=== PATIENT | female | born 1935 | race Caucasian/White ===

== ENCOUNTER 2017-02-13 07:55 | Inpatient (IN) | payer MEDICARE, BC ==
--- NOTE | 2017-01-08 15:12 | NUR ---
FACE TO FACE INTERVIEW WITH PATIENT. PMH, MEDS, ALLERGIES REVIEWED DOCUMENTED, INSTRUCTIONS GIVEN DOCUMENTED AND HANDOUTS IN THE FORM OF 'MEDS TO DC PRIOR TO SURGERY', CONSENT FOR JOINT REPLACEMENT, LETTER FROM DR EDDY, INFORMATION FOR SHOWERING 4 DAYS BEFORE SURGERY, AND SURGERY/ANESTHESIA PAMPHLET GIVEN TO PATIENT. Kevin DUGAN RN CONTACT INFORMATION INCLUDED IF PATIENT HAS QUESTIONS.
[2017-02-13] VITALS (28 sets, daily range): BP systolic 118–154; BP diastolic 56–70; PULSE 71–108; RESP 14–18; TEMP 97.2–99.3; O2SAT 90–100; Ht 157.5 cm; Wt 76.5 kg
[~2017-02-13] VITALS: Ht 157.5 cm; Wt 76.5 kg
[~2017-02-13 07:55] MED LIST: ACETAMINOPHEN 500 MG TABLET PO ONE; ALBU8.5H INH; ASCO500T9 PO; CALC-52 PO; CEFAZOLIN 2 GM VIAL IV ONE; DEXAMETHASONE 4mg/ml - 1ml INJECTION IV ONE; FAMOTIDINE 20mg IVPB 50 ML IV ONE; FLAX1000 PO; FLUT1DIS30 IH; FURO-33 PO; GABA-215 PO; GABA-305 PO; LEVO100T85 PO; LIDOCAINE 1% (10mg/ml) 2ml SDV SQ ONE; LISI10TA7 PO; LR 1,000 ML IV SCH; METOCLOPRAMIDE 10mg/2ml INJECTION IV ONE; MULT-933 PO; NOZIN NASAL SWAB NS ONE; ONDANSETRON 4mg/2ml INJECTION IV ONE; SIMV20TA89 PO; SIMV40TA82 PO; TRANEXAMIC ACID 1,000 MG in NORMAL SALINE 100 ML IV ONE; UBID100C10 PO
--- OUTSIDE RECORDS SUMMARY | 2017-02-13 08:00 | XMS REPORT | Continuity of Care Document ---
Author Author [facility] Organization [facility] Address Unknown Phone Unavailable Support Name Relationship Address Phone RAN LEWIS MD Caregiver [address] [place] [address] Unavailable RAN LEWIS MD Caregiver [address] [place] [address] Unavailable JORDAN CARVALHO Caregiver [address] [place] [address] Unavailable JUNIOR MUNGUIA Next Of Kin [address] [facility] [address] [place] [address] Insurance Providers Guarantor Sienna Munguia Address [address] [facility] [address] [place] [address] Email DENIED 16 Payer Rust Policy Number [id number] Subscriber's Name Sienan Munguia Relationship 18 Self Group Number [id number] Payer Medicare Policy Number [id number] Subscriber's Name Sienna Munguia Relationship 18 Self Advance Directives Directive Response Recorded Date/Time Ordered Resuscitation Status Full Code 11/24/16 4:07pm Resuscitation Documents on File No 11/28/16 9:02am DPOA for Healthcare Only No 11/28/16 9:02am Living Will No 11/28/16 9:02am Problems Active Problems Medical Problem Onset Date Status Asthma Unknown Degenerative arthritis of hip Unknown Chronic Hyperlipemia Unknown Hypertension Unknown Hypothyroidism Unknown Obesity (BMI 30-39.9) Unknown Medications Current Home Medications Medication Dose Units Route Directions Days Qty Instructions Start Date Albuterol Sulfate (Proair Hfa 90 Mcg/Actuation) 8.5 Gm Hfa.aer.ad 2 Puff Inhalation Every 4 Hours as needed for Shortness Of Air/Wheezing Ascorbic Acid (Vitamin C) 500 Mg Tablet 1 Tab Oral Twice A Day Calcium Carbonate (Calcium) 500 Mg Tablet 1 Tab Oral Twice A Day 11/13/16 Enoxaparin Sodium (Lovenox) 40 Mg/0.4 Ml Inj 40 Mg Sub-Q Every 24 Hours 5 11/29/16 Flaxseed Oil 1,000 Mg Capsule 1 Cap Oral Daily 11/13/16 Furosemide 40 Mg Tablet 40 Mg Oral Daily 08/11/13 Gabapentin 300 Mg Capsule 300 Mg Oral Three Times A Day 08/11/13 Gabapentin 600 Mg Tablet 1 Tab Oral Bedtime 11/13/16 Hydrocodone/Acetaminophen ([place] 5-325 Tablet) 5-325 Tablet 1-2 Tab Oral Every 4 Hours Prn as needed for Pain 60 Tablet 11/30/16 Ibuprofen 200 Mg Capsule 4 Cap Oral Every 8 Hours Prn as needed for Pain 11/13/16 Levothyroxine Sodium 100 Mcg Tablet 100 Mcg Oral Daily 08/11/13 Lisinopril 10 Mg Tablet 10 Mg Oral Daily for Hypertension Multivitamin (Multi-Day Vitamins) 1 Each Tablet 1 Tab Oral Daily 11/13/16 Polyethylene Glycol 3350 (Healthylax) 17 Gm Powd.pack 17 G Oral Daily 30 Packet 11/29/16 Salmeterol Xinafoate/Fluticasone (Advair 100-50 Diskus) 1 Each Disk.w.dev 1 Puff Inhalation Twice A Day 08/11/13 Simvastatin 20 Mg Tablet 20 Mg Oral Bedtime 08/11/13 Simvastatin 40 Mg Tablet 40 Mg Oral Bedtime 08/11/13 Ubidecarenone (Coq-10) 100 Mg Capsule 1 Cap Oral Daily 11/13/16 Warfarin Sodium 2.5 Mg Tablet 2.5 Mg Oral Give At Noon 30 Tablet Take 1 tablet, by mouth, 1 time a day (at NOON). 11/29/16 Social History Social History Problem Response Recorded Date/Time Onset Date Status Reason for Hospitalization Right Hip Replacement 11/30/2016 7:56am Not Applicable Not Applicable Chewing Tobacco Status No 08/12/2013 5:50am Not Applicable Not Applicable Hx Substance Use No 11/13/2016 2:29pm Not Applicable Not Applicable Hx Alcohol Use No 11/13/2016 2:29pm Not Applicable Not Applicable Has the pt used tobacco in the last 12 months No 11/28/2016 9:00am Not Applicable Not Applicable Query Response Start Date Stop Date Smoking Status Former smoker Hospital Discharge Instructions Instructions: Care Instructions: Reason for Hospitalization: Right Hip Replacement I was in the hospital because (patient own words): REPLACE RIGHT HIP Discharge Diet: Resume normal diet as tolerated Discharge Activity: Continue the exercises you were given in the hospital three times a day. Your therapist will provide you with a home therapy program prior to your hospital discharge. As you feel stronger, increase the number of repetitions you do in each session. Please check with us before you swim, use a whirlpool, drive or ride a bicycle. Follow Up Appointments: Follow up with Dr. Lewis on 12-20-16 @ 11:30AM Pending Lab / Results: No Pending Lab Patient Instructions: Driving may be resumed once you are no longer taking narcotic medications and feel you can safely operate the vehicle. You may wish to practice in an empty parking lot at first. Keep in mind that your reaction time will be delayed for up to 6 weeks after surgery. Contact your surgeon for antibiotics to take before having dental work. Wound/Incision Care: In most cases, a Mepilex dressing will be placed at the time of surgery. This dressing will not need to be covered while showering. Leave dressing in place until your follow-up appointment as long as it remains clean, dry and stuck down well around the edges. Call your Doctor if you encounter a problem with your dressing. Please avoid submerging your incision until it is completely healed, once the Mepilex dressing is removed. This includes bathtubs, swimming pools, and hot tubs. DO NOT USE ALCOHOL, PEROXIDE, OR OINTMENTS of any kind on your incision. Pain Scale Utilized to Educate Patient: 0-10 Pain Scale Pain Management/Treatment: Ice packs may be used, and will also help with the pain. You will be given a prescription for pain. Expected Signs/Symptoms: Some swelling around the incision, as well as in your feet and legs is normal. To help with this, elevate your feet on a footstool when sitting in a chair, and do the ankle pumps and circles whenever you are sitting still. Muscle action helps to move collected fluid out of the tissues and improve circulation. Ice packs may be used, and will also help with the pain. Report any persistent swelling, calf tenderness, increase in pain, or pain in the calf with warmth, or redness to your doctor. Notify Physician If: Report any complications to my office immmediately. This includes excessive bleeding, wound breakdown, redness around the wound, uncontrolled pain, or fever over 101 on 3 different measurements. Eat a balanced diet and get plenty of rest. During Business Hours:: If you have any questions or concerns, please call during regular office hours ([phone]). After Business Hours:: If you have any problems or need to reach a physician after hours or on the weekend please call the hospital's main number [phone] to have your physician paged. Condition at time of discharge: Good Plan of Care Discharge Date 11/30/16 1:24pm Disposition 03 TO [facility] NOT [facility] ([facility]) Instructions/Education Provided [facility] Postop Instructions [facility] General Instructions Prescriptions See Medication Section Additional Instructions/Education FOLLOW UP WITH DR LEWIS 12-20-16 @ 11:30AM Care Plan and Goals See Discharge Instructions Section Functional Status Query Response Date Recorded Mobility Status Ambulatory w/assist November 30, 2016 7:56am Assistive Devices Front Wheeled Walker November 30, 2016 7:56am Activity Limitations Weakness Pain November 30, 2016 7:56am Feeding Ability Independent November 30, 2016 7:56am Toileting Ability Assist November 30, 2016 7:56am Grooming Ability Assist November 30, 2016 7:56am Dressing Ability Assist November 30, 2016 7:56am Driving Ability Dependent November 30, 2016 7:56am Housework Ability Assist November 30, 2016 7:56am Meal Preparation Ability Assist November 30, 2016 7:56am Stair Climbing Ability Assist November 30, 2016 7:56am Ability to complete ADL's impeded by No change November 30, 2016 7:56am Cognitive/Perceptual Impairments Impaired vision November 30, 2016 7:56am Visual Assistive Devices Glasses With patient November 28, 2016 1:10pm Allergies, Adverse Reactions, Alerts Allergen Type Severity Reaction Status Last Updated No Known Drug Allergies Allergy Unknown Active 11/28/16 Immunizations Immunization Event Date Type Not Given Reason Dose Number Lot Number Media Sales Consultant VIS Given Pneumococcal conjugate PCV 13 11/30/16 Administered 1 [id number] Pfizer Query Response on File Recorded Date/Time Hx Influenza Vaccination Y 11-10-16 PER H&P 11/28/16 9:00am Hx Pneumococcal Vaccination Y AGE 67 11/13/16 2:29pm Hx Influenza Vaccination Y 11-10-16 PER H&P 11/28/16 9:00am Influenza Vaccine Hx 07/2016 02/09/17 11:57am Vital Signs Acute Vital Signs Vital Response Date/Time Temperature (Fahrenheit) 98.3 deg F (96.8 - 99.1) 11/30/2016 7:45am Temperature (Calculated Celsius) 36.07764 degrees C (36.0 - 37.3) 11/30/2016 7:45am Temperature Source Oral 11/30/2016 7:45am Pulse Rate (adult) 70 bpm (60 - 100) 11/30/2016 8:17am Respiratory Rate 18 breaths/min (10 - 20) 11/30/2016 8:17am O2 Sat by Pulse Oximetry 93 % (90 - 100) 11/30/2016 7:45am Oxygen Delivery Method Room Air 11/30/2016 7:45am Oxygen Delivery Method Nasal Cannula 11/28/2016 3:56pm Oxygen Flow Rate 2.00 L/min 11/30/2016 3:54am Blood Pressure 139/66 mm Hg 11/30/2016 7:45am Blood Pressure Source Automatic Cuff 11/30/2016 7:45am Height (Feet) 5 feet 11/29/2016 7:50am Height (Inches) 2.00 inches 11/29/2016 7:50am Weight (Kilograms) 72.500 kg 11/28/2016 8:31am Body Mass Index (BMI) 29.2 11/28/2016 8:31am Results Laboratory Results Test Name Result Units Flags Reference Collection Date/Time Result Date/ Time Comments White Blood Count 8.8 T/MM3 4.5-11.0 11/30/2016 4:10am 11/30/2016 5: 19am Red Blood Count 3.75 M/MM3 L 4.00-5.20 11/30/2016 4:10am 11/30/2016 5: 19am Hemoglobin 11.3 GM/DL L 12-16 11/30/2016 4:10am 11/30/2016 5:19am Hematocrit 35.9 % L 36-46 11/30/2016 4:10am 11/30/2016 5:19am Mean Corpuscular Volume 95.7 UM3 80-100 11/30/2016 4:10am 11/30/2016 5: 19am Mean Corpuscular Hemoglobin 30.1 UUG 26-34 11/30/2016 4:10am 2016 5:19am Mean Corpuscular Hemoglobin Concent 31.5 GM/DL 31-37 11/30/2016 4:11/30/2016 5:19am RDW Standard Deviation 43.2 FL 36.9-50.2 11/30/2016 4:11/30/2016 5 :19am Platelet Count 238 T/MM3 130-400 11/30/2016 4:11/30/2016 5:19am Mean Platelet Volume 11.4 UM3 9.4-12.4 11/30/2016 4:11/30/2016 5: 19am Prothromb Time International Ratio 1.55 H 0.76-1.04 11/30/2016 4:11/30/2016 5:19am THERAPUTIC RANGE=2.00-3.00 FOR ANTI-THROMBOSIS THERAPUTIC RANGE=2.50-3.50 FOR IMPLANTED VALVE Icterus Index < 2 0-7 11/30/2016 4:11/30/2016 5:30am Chemistry Specimen Hemolysis < 15 0-25 11/30/2016 4:11/30/2016 5 :30am 0-25: Specimen Exhibited No Hemolysis. Turbidity < 20 0-20 11/30/2016 4:11/30/2016 5:30am Sodium Level 139 MEQ/L 134-144 11/30/2016 4:11/30/2016 5:30am Potassium Level 4.3 MEQ/L 3.6-5 11/30/2016 4:11/30/2016 5:30am Chloride Level 107 MEQ/L 98-107 11/30/2016 4:11/30/2016 5:30am Carbon Dioxide Level 29 MEQ/L 22-30 11/30/2016 4:11/30/2016 5: 30am Anion Gap 3 MEQ/L L 5-15 11/30/2016 4:11/30/2016 5:30am Blood Urea Nitrogen 23.0 MG/DL H 7-17 11/30/2016 4:11/30/2016 5: 30am Creatinine 0.9 MG/DL 0.7-1.2 11/30/2016 4:11/30/2016 5:30am BUN/Creatinine Ratio 26 RATIO 6-26 11/30/2016 4:10a11/30/2016 5:30am Glomerular Filtration Rate Calc 60 11/30/2016 4:10a11/30/2016 5: 30am Glucose Level 87 MG/DL 65-110 11/30/2016 4:10a11/30/2016 5:30am Calculated Osmolality 271 MOSM/KG 261-280 11/30/2016 4:10a11/30/2016 5:30am Calcium Level 9.0 MG/DL 8.4-10.2 11/30/2016 4:10a11/30/2016 5:30am Name: SIENNA MUNGUIA Unit #: [id number] : 1935 Sex: F Admit Date: 11/28/16 Loc / Svc: SRG Discharge Date: DIAGNOSTIC IMAGING REPORT Report #: [id number] [place], [place] Indication: ITS.REASON: POSTOP right hip replacement PROCEDURE: PELVIS W/1 VIEW RT HIP: Encounter: Initial Comparison: None Findings: Postoperative changes of right total hip replacement are seen. There is expected postoperative subcutaneous gas. No evidence of hardware failure or acute fracture. No retained radiopaque surgical instruments or sponges seen. Severe osteoarthritis in the contralateral left hip. Impression: New right total hip prosthesis without evidence of immediate complication. . Procedures Procedure Status Date Provider(s) Total replacement of right hip joint Completed 11/28/16 RAN LEWIS MD Encounters Encounter Location Arrival/Admit Date Discharge/Depart Date Attending Provider Discharged Inpatient [facility] 11/28/16 8:13am 11/30/16 1:24pm RAN LEWIS MD
--- OUTSIDE RECORDS SUMMARY | 2017-02-13 08:00 | XMS REPORT | Continuity of Care Document ---
Demographics Preferred Language Unknown Marital Status Unknown Confucianist Affiliation Unknown Race Unknown Ethnic Group Unknown Author Author [facility] Organization [facility] Address Unknown Phone Unavailable Allergies Medications Problems Procedures Results Encounters ACCT No. Visit Date/Time Discharge Status Pt. Type Provider Facility Loc./Unit Complaint [id number] 09/20/2016 12:41:00 [facility] Unknown [id number] 11/12/2015 12:49:00 ACT Unknown [id number] 06/26/2014 12:58:00 ACT Unknown
[2017-02-13 08:35] LABS: ANION GAP 14 MEQ/L (5-15); BUN/CREATININE RATIO 28 RATIO (6-26); CALCIUM 9.5 MG/DL (8.4-10.2); CHLORIDE 103 MEQ/L (98-107); CO2 - CARBON DIOXIDE 29 MEQ/L (22-30); GLOMERULAR FILTRATION RATE 53; GLUCOSE 109 MG/DL (65-110); POTASSIUM 3.8 MEQ/L (3.6-5); SODIUM 146 MEQ/L (134-144)
--- NOTE | 2017-02-13 10:00 | ANESPREOP ---
Anesthesia Record Date and Time DATE: 02/13/17 TIME: 09:58 Proposed Surgical Procedure RT TKA (CHANGED FROM LT MICHAELLE) NPO since: 02/12/17 Allergies: Coded Allergies: No Known Drug Allergies (Verified Allergy, Unknown, 02/13/17) Ht/Wt/BMI Height: 5 ' 2.00 " Weight: 71.500 kg BMI: 28.8 kg/m2 Vital Signs Date Time Temp Pulse Resp B/P Pulse Ox O2 Delivery O2 Flow Rate FiO2 02/13/17 08:09 97.7 71 14 154/70 90 Room Air Medications Inpatient Medications Current Medications Medications (Trade) Dose Ordered Sig/Toni Start Time Stop Time Status Last Admin Dose Admin Lactated Ringer's (Lactated Ringers) 1,000 ml @ 50 mls/hr Q20H 02/13/17 07:00 02/13/17 08:47 50 MLS/HR Albuterol Sulfate (Proair HFA 90 mcg/actuation) 8.5 Gm Hfa.aer.ad, 2 PUFF INH Q4H PRN for SHORTNESS OF AIR/WHEEZING, (Reported) Last Taken: on 02/06/17 Ascorbic Acid (Vitamin C) 500 Mg Tablet, 1 TAB PO BID, (Reported) Last Taken: on 02/12/17 1700 Calcium Carbonate (Calcium) 500 Mg Tablet, 1 TAB PO BID, (Reported) Last Taken: on 02/12/17 1700 Flaxseed Oil (Flaxseed Oil) 1,000 Mg Capsule, 1 CAP PO DAILY, (Reported) Last Taken: on 02/12/17 1100 Fluticasone/Salmeterol (Advair 100-50 Diskus) 1 Each Disk.w.dev, 1 PUFF IH BID, (Reported) Last Taken: on 02/12/17 0600 Furosemide (Furosemide) 40 Mg Tablet, 40 MG PO DAILY, (Reported) Last Taken: on 02/12/17 0700 Gabapentin (Gabapentin) 300 Mg Capsule, 300 MG PO TID, (Reported) Last Taken: on 02/12/17 1700 Gabapentin (Gabapentin) 600 Mg Tablet, 1 TAB PO HS, (Reported) Last Taken: on 02/12/17 1900 Levothyroxine Sodium (Levothyroxine Sodium) 100 Mcg Tablet, 100 MCG PO DAILY, (Reported) Last Taken: on 02/12/17 0600 Lisinopril (Lisinopril) 10 Mg Tablet, 10 MG PO DAILY, (Reported) Last Taken: on 02/12/17 0700 Multivitamin (Multi-Day Vitamins) 1 Each Tablet , 1 TAB PO DAILY, (Reported) Last Taken: on 02/12/17 1100 Simvastatin (Simvastatin) 20 Mg Tablet, 20 MG PO HS, (Reported) Last Taken: on 02/12/17 1900 Simvastatin (Simvastatin) 40 Mg Tablet, 40 MG PO HS, (Reported) Last Taken: on 02/12/171899 Ubidecarenone (Coq-10) 100 Mg Capsule, 1 CAP PO DAILY, (Reported) Last Taken: on 02/05/17 Currently on Beta Alli: No Medical/Surgical History Anesthesia PMH: Reports: *Hypertension, Arthritis (OA; RT KNEE, LT HIP), Asthma (ON INHALER), Cancer (COLON-COLON RESECTION), Hyperlipidemia, Pneumonia ( last time 2007), Thyroid Disease (HYPO- ON MEDS) Smoking Status: Former smoker # of Packs per Day: 1 # of Years: 49 Use Chewing Tobacco?: No Second Hand Exposure: Yes Substance Use Type: does not use Alcohol Intake: other Last Drink: unknown HX of Last Menstrual Period: HYST Past Surgical History Orthopedic Surgeries: Yes - RT KNEE SCOPE; RT THR IN NOV 2016 Abdominal Surgeries: Yes - COLON RESECTION 1993 Genitourinary Surgeries: No Cardiac Surgeries: Endocrine Surgeries: Reproductive Surgeries: Yes - HYST 1980; BSO; FIBROID FROM RT BREAST Neurological Surgeries: Yes - BACK SURGERY FOR STENOSIS Ear Surgeries: No Nose Surgeries: No Throat Surgeries: No Other Surgeries: Yes - COLONOSCOPIES Anesthesia Adverse Reactions: FOUND none Family Hx of Anesthesia Advers: none Pertinent Findings Laboratory Tests 02/13/17 08:19 EKG Rhythm: Sinus Rhythm Physical Exam Respiratory: Bilat breath sounds equal Cardiovascular: FOUND Regular rate, rhythm Airway Assessment Mallampati Score: I TMD: 2 Fingerbreadths Neck Extension: Good Teeth: Upper Dentures ASA: 3 Plan Anesthesia Plan: GETA Discussion Discussed risks/options/alternatives of anesthesia and questions answered. Patient consents. Nursing pain assessment noted. Attestation Statement Prior to the delivery of any anesthetic medication, I examined the patient, developed the plan, obtained the patient's consent and discussed the risk and benefits of the procedure with the patient/guardian. HARISH CHÁVEZ Feb 13, 2017 10:00
[2017-02-13] MEDS ORDERED: FENTANYL 250mcg/5ml INJECTION ONE (10:06)
[2017-02-13] MEDS ORDERED: PROPOFOL 200mg 20 ML IV ONE ×2 (10:07→13:42)
[2017-02-13] MEDS ORDERED: LIDOCAINE (2%) 100 MG/5 ML PF SYRINGE IV ONE (10:07)
[2017-02-13] MEDS ORDERED: KETAMINE 500mg/10ml INJECTION ONE (10:08)
[2017-02-13] MEDS ORDERED: PROPOFOL 200mg 200 MG, ESMOLOL 50 MG, KETAMINE 50 MG, LIDOCAINE 2% 100 MG, MAGNESIUM SU... IV ONE ×7 (10:15)
[2017-02-13] MEDS ORDERED: SALINE FLUSH 10ml SYRINGE ONE (10:27)
[2017-02-13] MEDS ORDERED: PHENYLEPHRINE 10mg/ml INJECTION ONE (10:27)
[2017-02-13] MEDS ORDERED: HYDROMORPHONE 2mg/ml INJECTION ONE (10:51)
[2017-02-13] MEDS ORDERED: ROPIVACAINE 0.5% (5mg/ml) 30ml INJ ONE (11:35)
--- NOTE | 2017-02-13 11:50 | PDOPERATE ---
Operative Report Date of Operation 02/13/17 Side: Right Preoperative Diagnosis: knee primary DJD Postoperative Diagnosis Same as preoperative diagnosis. Operation/Procedure: total knee arthroplasty (right) Surgeon Patricia Lewis MD Elevator Constructor EVELIO Thomas Complications None. Anesthesia Plan: GETA Estimated Blood Loss See Anesthesia Record. Fluids Please See Anesthesia Record. Description of Operation Ms. Munguia and her right knee were identified and marked in the the preoperative holding area. She was then brought back to the operating suite and proper anesthesia was administered. She was then positioned supine on the operating table. The right lower extremity was then prepped and draped in my normal sterile fashion. Timeout was performed with all operating room personnel. The leg was exsanguinated and tourniquet inflated 250 mmHg. the tourniquet was then deflated after initial bone cuts and then reinflated for cementing only. A standard anterior incision followed by a medial parapatellar approach was utilized. She had significant wear in both the medial and lateral femoral condyles the tibia was spared for the most part. A distal femoral cut was made in 5 of valgus using intramedullary guide. The femur was sized at a 3 and rotation set using the epicondylar axis. Distal femoral cuts were performed. A proximal tibial cut was made using extramedullary guide. Remaining osteophytes and meniscus were removed. Gaps were checked and they were well balanced and rectangular. Trial components were placed with a 9 mm spacer. This allowed for full range of motion and the patella tracked well. The knee was stable throughout range of motion. The patella was resurfaced with the knee in extension to a size 29. The tibia rotation was then marked and the tibia stamped at the proper rotation at a size 3. The bone was prepared for cementing and all components cemented into place and allowed to cure in extension. Betadine solution was used for 3 minutes during the curing period and then fully irrigated out with 1 L of normal saline. The tourniquet was deflated and hemostasis obtained with electrocautery. After the cement had cured the knee was taken through range of motion check for balance and stability which were good. Vancomycin powder was placed into the wound. The arthrotomy was closed with #1 Vicryl. The remainder of the wound was then closed by my city carrier assistant utilizing 2-0 vycral in the subcutaneous tissue. 4-0 monocryl was used in the subcuticular layer followed by dermabond and a sterile dressing. After closure the patient will be transferred to the recovery room under the care of anesthesia. RAN LEWIS MD Feb 13, 2017 11:50
[2017-02-13] MEDS ORDERED: EPINEPHRINE 0.25 MG, BUPIVACAINE 0.25% 75 MG, MORPHINE SULFATE 15 MG in NORMAL SALINE 3... INJ ONE (12:00)
[2017-02-13] MEDS ORDERED: PRN ORDERS MC (12:15)
[2017-02-13] MEDS ORDERED: DiphenhydrAMINE 25 MG CAPSULE PO PRN (12:15)
[2017-02-13] MEDS ORDERED: ONDANSETRON 4mg/2ml INJECTION IV PRN ×2 (12:15→12:45)
[2017-02-13] MEDS ORDERED: METOCLOPRAMIDE 10mg/2ml INJECTION IV PRN (12:15)
[2017-02-13] MEDS ORDERED: DiphenhydrAMINE 50 MG/ML INJECTION IV PRN (12:15)
[2017-02-13] MEDS ORDERED: NOZIN NASAL SWAB NS ONE (12:15)
[2017-02-13] MEDS ORDERED: SENNOSIDES 8.6 MG TABLET PO PRN (12:15)
[2017-02-13] MEDS ORDERED: LORAZEPAM 1 MG TABLET PO PRN (12:15)
[2017-02-13] MEDS ORDERED: TRAMADOL 50 MG TABLET PO PRN (12:15)
--- NOTE | 2017-02-13 12:30 | ANESPD ---
Peripheral Nerve Blockade Physician: Charli Lewis MD Date: 02/13/17 Surgical Procedure: Right adductor canal block Discussion Discussed risks/options/alternatives of anesthesia and questions answered. Patient consents. Nursing pain assessment noted. Block Start: 12:18 Block Stop: 12:20 Block Employed: Adductor Canal Indication: post-operative pain Approach: right side confirmed Position: supine Patient: Consent, risks/benefits discussed, Informed, post block act. discussed Monitors: SpO2, NIBP IV Sedation: No Initial Vital Signs First Documented Vital Signs Date Time Temp Pulse Resp B/P Pulse Ox O2 Delivery O2 Flow Rate FiO2 02/13/17 08:09 97.7 71 14 154/70 90 Room Air Post Vital Signs Vital Signs Date Time Temp Pulse Resp B/P Pulse Ox O2 Delivery O2 Flow Rate FiO2 02/13/17 08:09 97.7 71 14 154/70 90 Room Air Initial Pain Score: 5 Post Block Score: 2 Prep: chlorhexadine/ETOH Ultrasound Used?: Yes (see ultrasound image in EMR) Nerve Simulator Parathesia/Pain: none Injectate Ropivacaine (%): .5 Ropivacaine (mL): 15 Was Epi 1:200,000 Used?: No Injection Injection made incrementally with constant monitoring and aspiration every 5 ml. HARISH CHÁVEZ Feb 13, 2017 12:30
--- NOTE | 2017-02-13 12:32 | ANESPO ---
Post-Op Note Date 02/13/17 Time: 12:30 Status Pt Participated in Evaluation: Pt participated in person Vital Signs Date Time Temp Pulse Resp B/P Pulse Ox O2 Delivery O2 Flow Rate FiO2 02/13/17 08:09 97.7 71 14 154/70 90 Room Air Respiratory Function: Airway patent Cardiovascular Function: Regular pulse Mental Status: Alert/oriented Pain Level Intensity: 2 Hydration: IV infusing Complications during Recovery None apparent Follow-Up Instructions Instructions Per Surgeon HARISH CHÁVEZ Feb 13, 2017 12:32
[2017-02-13] MEDS: HYDROMORPHONE 2mg/ml INJECTION IV PRN ×2 (12:45→12:58)
[2017-02-13] MEDS: NORMAL SALINE 1,000 ML IV SCH (12:55)
--- NOTE | 2017-02-13 12:55 | DI ---
Indication: ITS.REASON: POSTOP right knee replacement PROCEDURE: KNEE RIGHT 2 VIEW: Encounter: Initial Comparison: None Findings: Postoperative changes of right total knee replacement are seen. There is expected postoperative subcutaneous gas. No evidence of hardware failure or acute fracture. No retained radiopaque surgical instruments or sponges. Overlying material causing artifact. Impression: New right total knee prosthesis without evidence of immediate complication. .
--- NOTE | 2017-02-13 13:04 | NUR ---
COUMADIN CONSULT (Initial): Dx: 82yo F with Rt TKA procedure. Warfarin Naive. Baseline INR = WNL Will give Warfarin 5mg today. Will continue to monitor and make adjustments accordingly. Thank you.
--- NOTE | 2017-02-13 13:25 | NUR ---
POST-OP Patient returns from post-op per cart. Transfers herself from the cart to the bed. VS are stable. Patient's two sons are present at bedside.
[2017-02-13] MEDS ORDERED: WARFARIN 5 MG TABLET PO ONE (14:00)
[2017-02-13] MEDS: NOZIN NASAL SWAB NS SCH ×2 (14:00→21:35)
[2017-02-13] MEDS ORDERED: ALBUTEROL INH.SOLN. 2.5mg/3ml (0.083%) Neb. AEROSOL PRN (15:00)
[2017-02-13] MEDS: GABAPENTIN 300 MG CAPSULE PO SCH ×2 (15:18→17:18)
[2017-02-13] MEDS: ACETAMINOPHEN 325 MG TABLET PO SCH ×3 (15:19→21:35)
[2017-02-13] MEDS: OXYCODONE I.R. 5 MG TABLET PO PRN ×2 (16:23→20:23)
--- NOTE | 2017-02-13 18:35 | NUR ---
STATUS Patient worked with PT and OT and tolerated well. Oxicodone given x 1 with good relief of pain. Polar Pack is in place. VS have been stable. Patient's sons have been at bedside.
[2017-02-13] MEDS: CEFAZOLIN 2 G in NORMAL SALINE 100 ML IV SCH (18:38)
--- NOTE | 2017-02-13 20:30 | NUR ---
COMFORT PT C/O 02/28 RIGHT KNEE ACHE, WANTED 3 TABS 5MG ROXICODONE I.R'S AT THIS TIME. GIVEN. PT DID NOT WANT TO WALK YET.
[2017-02-13] MEDS ORDERED: ENOXAPARIN 40 MG/0.4 ML INJECTION SQ SCH (21:00)
[2017-02-13] MEDS: ASCORBIC ACID 500 MG TABLET PO SCH (21:34)
[2017-02-13] MEDS: CALCIUM 500 MG TABLET PO SCH (21:34)
[2017-02-13] MEDS: FLUTICASONE/SALMETEROL 100/50 DISK INHALER ORAL INH SCH (21:36)
[2017-02-13] MEDS ORDERED: GABAPENTIN 600 MG TABLET PO SCH (22:00)
[2017-02-13] MEDS ORDERED: SIMVASTATIN 20 MG TABLET PO SCH (22:00)
[2017-02-13] MEDS ORDERED: SIMVASTATIN 40 MG TABLET PO SCH (22:00)
[2017-02-13] MEDS ORDERED: SENNOSIDES 8.6 MG TABLET PO SCH (22:00)
--- NOTE | 2017-02-13 23:37 | NUR ---
Chart Check 24 hour chart check completed
[2017-02-14 00:15] VITALS: BP 107/56; PULSE 88; RESP 14; TEMP 97.7; O2SAT 98
[2017-02-14] MEDS: CEFAZOLIN 2 G in NORMAL SALINE 100 ML IV SCH (02:12)
[2017-02-14] MEDS: OXYCODONE I.R. 5 MG TABLET PO PRN ×5 (02:28→15:19)
--- NOTE | 2017-02-14 02:30 | NUR ---
COMFORT PT C/O 01/29 RIGHT KNEE ACHE, WANTED 3 TABS 5MG ROXICODONE I.R'S AT THIS TIME.
[2017-02-14] MEDS: NORMAL SALINE 1,000 ML IV SCH ×2 (04:58→13:01)
[2017-02-14 05:14] VITALS: BP 112/51; PULSE 71; RESP 16; TEMP 96.6; O2SAT 99
--- NOTE | 2017-02-14 05:33 | NUR ---
SUMMARY PT HAS SLEPT OFF AND ON ( SHE WOULD AT HOME). O2 SATS ON ROOM AIR DROPPED WHEN PT HAD O2 OFF AND SLEEPING. REPLACED ON 1.5L NC SHE WEARS AT HOME AT NIGHT. DISCOMFORT HAS BEEN CONTROLLED WITH PO ROXICODONE. WILL BE TAKING HER IN 3 TABS THIS A.M. SHE HAS BEEN TAKING 2-3 AT A TIME FOR RIGHT KNEE PAIN. VOIDING WELL. HAS BEEN ALERT X3. UP WITHOUT ASSISTANCE WITH WALKER AND GAIT BELT WITH SUPERVISION. INCONTINENT URINE SOME IN A PAD IN HER HOME UNDIES.
[2017-02-14] MEDS: NOZIN NASAL SWAB NS SCH ×2 (05:43→14:11)
[2017-02-14 06:00] LABS: HCT - HEMATOCRIT 37.8 % (36-46); HGB - HEMOGLOBIN 11.7 GM/DL (12-16); INR 1.14 (0.76-1.04); MEAN CORPUSCULAR HGB 29.7 UUG (26-34); MEAN CORPUSCULAR VOLUME 95.9 UM3 (80-100); MEAN PLATELET VOLUME 11.6 UM3 (9.4-12.4); PROTHROMBIN TIME 12.4 SEC (9.31-12.49); RED BLOOD COUNT 3.94 M/MM3 (4.00-5.20); WBC - WHITE BLOOD COUNT 11.3 T/MM3 (4.5-11.0)
[2017-02-14 06:04] LABS: ANION GAP 7 MEQ/L (5-15); BUN/CREATININE RATIO 23 RATIO (6-26); CALCIUM 8.6 MG/DL (8.4-10.2); CHLORIDE 107 MEQ/L (98-107); CO2 - CARBON DIOXIDE 29 MEQ/L (22-30); GLOMERULAR FILTRATION RATE 53; GLUCOSE 99 MG/DL (65-110); POTASSIUM 4.9 MEQ/L (3.6-5); SODIUM 143 MEQ/L (134-144)
[2017-02-14] MEDS ORDERED: LEVOTHYROXINE 100 MCG TABLET PO SCH (06:30)
--- NOTE | 2017-02-14 07:16 | NUR ---
UPDATE PT IS AWAKE,WATCHING TV.PT IS A&0X3 THIS MORNING, RATING HER PAIN A 5/10, PAIN MEDICATION WILL BE DUE AGAIN AT 0845. PT REMINDED TO ORDER BREAKFAST, MENU AND PHONE PLACED CLOSE TO PT. DENIES ANY OTHER NEEDS AT THIS TIME. WILL CONTINUE TO MONITOR.
[2017-02-14 08:01] VITALS: BP 113/55; PULSE 71; RESP 16; TEMP 96.7; O2SAT 91
[2017-02-14] MEDS: ASCORBIC ACID 500 MG TABLET PO SCH (08:01)
[2017-02-14] MEDS: GABAPENTIN 300 MG CAPSULE PO SCH ×2 (08:01→13:00)
[2017-02-14] MEDS: CALCIUM 500 MG TABLET PO SCH (08:01)
[2017-02-14] MEDS: ACETAMINOPHEN 325 MG TABLET PO SCH ×2 (08:01→13:00)
--- NOTE | 2017-02-14 08:15 | PDORTHOPN ---
Subjective Date DATE: 02/14/17 TIME: 08:11 Subjective Sienna is doing very well this AM. She is asking when she can go home. Her son lives with her and will help with her home needs. Pt would like to get some home health to assist her with additional needs. Pain is well controlled. She has been mobile with good tolerance. No other concerns. Objective Vital Signs Vital signs Vital Signs 02/14/17 02/14/17 02/14/17 00:15 05:14 08:01 Temp 97.7 96.6 96.7 Pulse 88 71 71 Resp 14 16 16 B/P 107/56 112/51 113/55 Pulse Ox 98 99 91 O2 Delivery Nasal Cannula Nasal Cannula Room Air O2 Flow Rate 1.00 1.50 Height (Feet): 5 Height (Inches): 2.00 Weight (Kilograms): 76.500 General General Appearance: No Acute Distress Respiratory (Brief) Respiratory Brief: FOUND: non-labored Cardiovascular (Brief) Cardiac: FOUND: calf easily compressible, calf soft, nontender, pedal pulses intact Surgical Site Incision: FOUND: Mepilex dressing intact, no drainage Neurologic (Brief) Neurological Brief: FOUND: extremities w/o deficits, neuro intact Psychiatric (Brief) Psychiatric Brief: FOUND: alert, no acute distress Laboratory Laboratory Laboratory Tests 02/14/17 04:37 Laboratory Tests 02/13/17 08:19 02/14/17 04:37 Assessment & Plan Problems: (1) Degenerative arthritis of right knee Status: Chronic Qualifiers: Osteoarthritis type: primary Qualified Codes: M17.11 - Unilateral primary osteoarthritis, right knee Assessment & Plan: Lovenox - Coumadin protocol for VTE prophylaxis due to hx of Colon CA. SCD's and early mobilization added for additional DVT coverage. PT/OT services to improve independent function. Mild WBC elevation likely due to stress response and pre op steroids. Pt is afebrile and has no s/sx of infection. Discharge Planning per Case Management. Arrange home health services. Hospital Course Summary Disclaimer The visit summary below is not to be considered part of the above Progress Note. MARGARITA BROWNE Feb 14, 2017 08:15
--- NOTE | 2017-02-14 08:25 | NUR ---
CM CM IN TO VISIT WITH PT. SHE IS ALERT AND ORIENTED. SHE REPORTS THAT SHE PLANS TO RETURN HOME. HER SON WILL BE STAYING WITH HER. SHE WISHES TO USE Rev. SHE HAS FWW. SHE USES [facility]. CM WILL CHECK MAX OF LOVENOX INJECTIONS. SHE IS GIVEN CM CONTACT INFORMATION. LACE SCORE IS 8. Addendum: 02/14/17 at 0871 by FOZIA CORNELL RN Amended: Links added.
--- NOTE | 2017-02-14 08:31 | NUR ---
CM LOVENOX 40MG SQ DAILY #5 IS CALLED TO [facility]. CM REQUESTS RETURN CALL WITH PT OUT OF POCKET COST.
[2017-02-14] MEDS ORDERED: FUROSEMIDE 40 MG TABLET PO SCH (09:00)
[2017-02-14] MEDS ORDERED: COENZYME Q10 200 MG TABLET PO SCH (09:00)
[2017-02-14] MEDS ORDERED: LISINOPRIL 10 MG TABLET PO SCH (09:00)
[2017-02-14] MEDS ORDERED: POLYETHYL.GLYCOL 3350 PACKET 17gm PO SCH (09:00)
[2017-02-14] MEDS ORDERED: DOCUSATE SODIUM 100 MG CAPSULE PO SCH (09:00)
[2017-02-14] MEDS: FLUTICASONE/SALMETEROL 100/50 DISK INHALER ORAL INH SCH (09:20)
--- NOTE | 2017-02-14 10:03 | NUR ---
COUMADIN CONSULT (Initial): Dx: 82yo F with Rt TKA procedure. The Patient was Warfarin naive. Date INR Dose 02/13 ---- 5 mg 4.26 1.14 Plan 5 mg I ordered Warfarin 5mg today. The Pharmacy will continue to monitor and make adjustments accordingly. Thank you for the Warfarin Protocol, Yared Gamboa, Pharmacist.
[2017-02-14] MEDS ORDERED: WARFARIN 5 MG TABLET PO SCH (12:00)
[2017-02-14 12:01] VITALS: BP 129/57; PULSE 76; TEMP 96.8
[2017-02-14] MEDS ORDERED: ACET-2321 PO (14:33)
[2017-02-14] MEDS ORDERED: WARF2.5T48 PO (14:33)
[2017-02-14] MEDS ORDERED: OXYC5TAB84 PO (14:33)
[2017-02-14] MEDS ORDERED: POLY17PO18 PO (14:33)
[2017-02-14] MEDS ORDERED: ENOX40DI SQ (14:33)
--- NOTE | 2017-02-14 14:54 | DSPDOC ---
General Date Date DATE: 02/14/17 TIME: 14:53 Attending Physician Charli Lewis MD Admitting Physician Charli Lewis MD Consulting Physician Admitting Diagnosis PRIMARY DEGENERATIVE JOINT DISEASE RIGHT KNEE Discharge Diagnosis primary DJD right knee Procedures Right total knee arthroplasty Diagnosis Right knee primary DJD History of Present Illness HPI Elements This patient was admitted for elective surgical tx of end stage degenerative joint disease that failed to respond to conservative treatment. Further details of this is found in the admission H&P. Hospital Course After appropriate preoperative clearance and signing of operative consent, the patient was given IV antibiotics, according to orthopedic protocol. The patient was taken to the operating room and underwent elective joint arthroplasty. Following surgery, antibiotics were discontinued less than 24 hours according to joint protocol. Appropriate anticoagulants were initiated and SCDs added for DVT prevention. The dressing was clean, dry, and intact. Pain control was obtained via multimodal approach. Bowel motivation addressed with scheduled and PRN medications. Early mobilization was initiated through PT services. Discharge arrangements made by a collaborative effort between the patient and Case Management. Follow-up is scheduled in 2-3 weeks. Discharge instructions given by orthopedic providers and nursing staff at discharge. Discharge condition was good. Problems: (1) Degenerative arthritis of right knee Status: Chronic Assessment & Plan: Lovenox - Coumadin protocol for VTE prophylaxis due to hx of Colon CA. SCD's and early mobilization added for additional DVT coverage. PT/OT services to improve independent function. Mild WBC elevation likely due to stress response and pre op steroids. Pt is afebrile and has no s/sx of infection. Discharge Planning per Case Management. Arrange home health services. Associated Postoperative Event: Acute P.O. Anemia Ongoing Care Required?: No Acute P.O. Anemia: Patient received IVF, Labs monitored daily, No intervention required, HGB drop-acceptable range Leukocytosis: d/t surg. stress response Laboratory Laboratory Tests Test 02/14/17 04:37 White Blood Count 11.3T/MM3 Red Blood Count 3.94M/MM3 Hemoglobin 11.7GM/DL Hematocrit 37.8% Mean Corpuscular Volume 95.9UM3 Mean Corpuscular Hemoglobin 29.7UUG Mean Corpuscular Hemoglobin Concent 31.0GM/DL RDW Standard Deviation 47.0FL Platelet Count 232T/MM3 Mean Platelet Volume 11.6UM3 Prothromb Time International Ratio 1.14 Turbidity < 20 Sodium Level 143MEQ/L Potassium Level 4.9MEQ/L Chloride Level 107MEQ/L Carbon Dioxide Level 29MEQ/L Anion Gap 7MEQ/L Blood Urea Nitrogen 23.0MG/DL Creatinine 1.0MG/DL Glomerular Filtration Rate Calc 53 BUN/Creatinine Ratio 23RATIO Glucose Level 99MG/DL Calculated Osmolality 279MOSM/KG Calcium Level 8.6MG/DL Icterus Index < 2 Chemistry Specimen Hemolysis < 15 Home Meds Active Scripts Warfarin Sodium (Coumadin) 2.5 Mg Tablet, 2.5 MG PO NOON, #30 TAB Take by mouth, 1 time a day (at NOON). Prov:RANULFO PONCE 02/14/17 Polyethylene Glycol 3350 (Healthylax) 17 Gm Powd.pack, 17 G PO DAILY, #30 PACKET Prov:RANULFO PONCE 02/14/17 Oxycodone HCl (Oxycodone HCl) 5 Mg Tablet, 5-15 MG PO Q3H Y for BREAKTHROUGH PAIN, #60 TAB Prov:RANULFO PONCE 02/14/17 Acetaminophen (Tylenol) 325 Mg Tablet, 650 MG PO QID, #100 TAB Prov:RANULFO PONCE 02/14/17 Enoxaparin Sodium (Lovenox) 40 Mg/0.4 Ml Inj, 40 MG SQ Q24H, #5 Prov:RANULFO PONCE 02/14/17 Reported Medications Flaxseed Oil (Flaxseed Oil) 1,000 Mg Capsule, 1 CAP PO DAILY 11/13/16 Ubidecarenone (Coq-10) 100 Mg Capsule, 1 CAP PO DAILY 11/13/16 Ascorbic Acid (Vitamin C) 500 Mg Tablet, 1 TAB PO BID, TAB 11/13/16 Calcium Carbonate (Calcium) 500 Mg Tablet, 1 TAB PO BID 11/13/16 Multivitamin (Multi-Day Vitamins) 1 Each Tablet, 1 TAB PO DAILY, TAB 11/13/16 Albuterol Sulfate (Proair HFA 90 mcg/actuation) 8.5 Gm Hfa.aer.ad, 2 PUFF INH Q4H Y for SHORTNESS OF AIR/WHEEZING, INHALER 11/13/16 Gabapentin (Gabapentin) 600 Mg Tablet, 1 TAB PO HS, TAB 11/13/16 Lisinopril (Lisinopril) 10 Mg Tablet, 10 MG PO DAILY for HYPERTENSION, TAB 11/13/16 Gabapentin (Gabapentin) 300 Mg Capsule, 300 MG PO TID 08/11/13 Fluticasone/Salmeterol (Advair 100-50 Diskus) 1 Each Disk.w.dev, 1 PUFF IH BID 08/11/13 Furosemide (Furosemide) 40 Mg Tablet, 40 MG PO DAILY 08/11/13 Levothyroxine Sodium (Levothyroxine Sodium) 100 Mcg Tablet, 100 MCG PO DAILY 08/11/13 Simvastatin (Simvastatin) 40 Mg Tablet, 40 MG PO HS 08/11/13 Simvastatin (Simvastatin) 20 Mg Tablet, 20 MG PO HS 08/11/13 Discharge Disposition Please refer to Case Management Notes for patient's disposition. Estimated Blood Loss 50.0 RANULFO PONCE Feb 14, 2017 14:54
--- NOTE | 2017-02-14 15:35 | NUR ---
DISMISSAL UPDATE PT AND PTS SON GIVEN DISMISSAL INSTRUCTIONS ALONG WITH PRESCRIPTIONS. THEY BOTH STATE UNDERSTANDING. IV WAS DC'D AND PT WAS GIVEN PAIN MEDICATION FOR COMFORT DURING HER WAY BACK HOME. PT WAS WHEELED TO THE ER EXIT BY THIS RN AND HELPED TO CAR.
[2017-02-15] MEDS ORDERED: MILK OF MAGNESIA 30 ML SUSP PO SCH (08:00)
[2017-02-15] MEDS ORDERED: BISACODYL 10 MG SUPPOSITORY RECTALLY SCH (20:00)
== END 2017-02-14 15:35 | disposition home health service (06) | DRG 470 ==
LOC: SRG 07:55
PROVIDERS: ADMIT Orthopaedic Surgery; ATTEND Orthopaedic Surgery
PROC: 0SRC0J9 Replacement of Right Knee Joint with Synthetic Substitute, Cemented, Open Approach (ICD-10-PCS; principal; 2017-02-13 10:32)
DX: M17.0 Bilateral primary osteoarthritis of knee (principal); Z96.641 Presence of right artificial hip joint; M16.12 Unilateral primary osteoarthritis, left hip; D64.9 Anemia, unspecified; D72.829 Elevated white blood cell count, unspecified; I10 Essential (primary) hypertension; E78.4 Other hyperlipidemia; E03.9 Hypothyroidism, unspecified; J45.909 Unspecified asthma, uncomplicated; I73.00 Raynaud's syndrome without gangrene; Z87.891 Personal history of nicotine dependence; Z85.038 Personal history of other malignant neoplasm of large intestine
CPT/HCPCS: 36415; 80048; 85027; 85610; 94640

== ENCOUNTER 2017-05-03 08:15 | Inpatient (IN) ==
[~2017-05-03 08:15] MED LIST changes: -ALBU8.5H INH; -ASCO500T9 PO; -CALC-52 PO; -CEFAZOLIN 2 GM VIAL IV ONE; +DEXAMETHASONE 4 MG/ML INJECTION IVP ONE; -DEXAMETHASONE 4mg/ml - 1ml INJECTION IV ONE; -FAMOTIDINE 20mg IVPB 50 ML IV ONE; +FAMOTIDINE PB 20 MG/50 ML BAG IV ONE; -FLAX1000 PO; -FLUT1DIS30 IH; -FURO-33 PO; -GABA-215 PO; -GABA-305 PO; -LEVO100T85 PO; +LIDOCAINE 1% (10mg/ml) 10mL MDV SQ ONE; -LIDOCAINE 1% (10mg/ml) 2ml SDV SQ ONE; -LISI10TA7 PO; -LR 1,000 ML IV SCH; -METOCLOPRAMIDE 10mg/2ml INJECTION IV ONE; +METOCLOPRAMIDE 10mg/2ml INJECTION IVP ONE; -MULT-933 PO; +NOZIN NASAL SWAB NAS ONE; -NOZIN NASAL SWAB NS ONE; +ONDANSETRON 4 MG/2 ML INJECTION IVP ONE; -ONDANSETRON 4mg/2ml INJECTION IV ONE; -SIMV20TA89 PO; -SIMV40TA82 PO; -TRANEXAMIC ACID 1,000 MG in NORMAL SALINE 100 ML IV ONE; -UBID100C10 PO
[2017-05-03 08:34] VITALS: BMI 28.3
[2017-05-03] MEDS ORDERED: LIDOCAINE 1% (10mg/ml) 2mL INJ PF SDV ID ONE (08:50)
[2017-05-03] MEDS: LR 1,000 ML IV PRN ×2 (08:50→13:05)
--- NOTE | 2017-05-03 09:36 | Anesthesia Preoperative Report ---
Anesthesia Preoperative Record - Date and Time Date: 05/03/17 Preoperative Diagnosis: Lt MICHAELLE-M16.12 NPO Since Date: 05/02/17 NPO Since Time: 16:00 Allergies/Adverse Reactions: Allergies Allergy/AdvReac Type Severity Reaction Status Date / Time atorvastatin [From Lipitor] AdvReac Unknown muscle Verified 05/03/17 08:37 aches nifedipine AdvReac Unknown per h&p Verified 05/03/17 08:37 dated 04-13-17 - Vital Signs Vital Signs: Temperature 98.2 F 05/03/17 08:33 Pulse Rate 81 05/03/17 08:33 Respiratory Rate 16 05/03/17 08:33 Blood Pressure 186/79 H 05/03/17 08:33 Pulse Oximetry 94 05/03/17 08:33 Oxygen Delivery Method Room Air Height and Weight: Height 1.57 m Weight 70.2 kg Body Mass Index 28.3 - Medications Inpatient Medications: Current Medications Lactated Ringer's (Lactated Ringers) 1,000 mls @ 50 mls/hr IV .Q20H PRN Last Admin: 05/03/17 08:50 Dose: 50 mls/hr Sodium Chloride (Iv Flush) 10 - 80 ml IVF PRN PRN PRN Reason: [place] Home Medications: Home Medications Medication Instructions Recorded Confirmed Type Fluticasone/Salmeterol 100/50 1 puff IH BID #0 08/11/13 05/03/17 History [Advair Diskus] Gabapentin 300 mg PO TID #0 08/11/13 05/03/17 History Simvastatin 20 mg PO HS #0 08/11/13 05/03/17 History Albuterol Sulfate [Proair Hfa] 2 puff INH Q4H PRN #0 inhaler 11/13/16 05/03/17 History Ascorbic Acid [Vitamin C] 500 mg PO BID #0 tab 11/13/16 05/03/17 History Flaxseed Oil 1 cap PO DAILY #0 11/13/16 05/03/17 History Gabapentin 600 mg PO HS #0 tab 11/13/16 05/03/17 History Lisinopril 10 mg PO DAILY #0 tab 11/13/16 05/03/17 History Multivitamin [Multi-Day Vitamins] 1 tab PO DAILY #0 tab 11/13/16 05/03/17 History simvastatin 40 mg tablet 40 mg PO HS #0 tab 04/02/17 05/03/17 History Levothyroxine Tab [Synthroid] 100 mcg PO ACB 04/09/17 05/03/17 History Calcium Carbonate/Vitamin D3 1 each PO BID 04/27/17 05/03/17 History [Calcium 500-Vit D3 200 Tablet] Estradiol [Estrace] 1 tab PO DAILY 04/27/17 05/03/17 History Furosemide [Lasix] 40 mg PO DAILY 04/27/17 05/03/17 History Is Patient on Beta Alli?: No - Medical History Respiratory: Reports: Asthma, Chronic Obstructive Pulmonary Disease (COPD) ( pressumptive, with over 50 years of tobacco abuse), Sleep Apnea Cardiovascular: Reports: Hypertension, High Cholesterol Neuro/Musculoskeletal: Reports: Back Problems (s/p back surgery), Other ( neuropathy of lower extremeties) Renal/Endocrine: Reports: Thyroid Disease - Surgical History GI Surgery/Treatments: Reports: Colon Resection (1993), Colonoscopy Musculoskeletal Surgery/Tx: Reports: Knee Arthroscopy (Rt), Total Hip Replacement (Rt MICHAELLE ), Total Knee Replacement (Rt TKA ) Reproductive Surgery/Treatment: Reports: Hysterectomy, Laparoscopy (BSO), Lumpectomy (fibroid right breast) Anesthesia Reactions: None Hx Family Anesthesia Reaction: No History of Motion Sickness: No - Social History Smoking Status: Former smoker packs per day: 1.5 Pack-years: 55 Hx Chewing Tobacco Use: No Quit Date: 03/22/05 Substance Use Type: does not use Alcohol Intake Frequency: does not drink - Pertinent Findings Laboratory: CBC and BMP 05/03/17 08:55 05/03/17 08:55 BMP 05/03/17 08:55 Sodium 144 Potassium 4.4 Chloride 107 Carbon Dioxide 28 BUN 21.0 H Creatinine 0.9 Glucose 105 Calcium 9.4 - Physical Exam Respiratory Exam: Present: lungs clear Cardiovascular Exam: Present: regular rate and rhythm - Airway Assessment Mallampati Score: II TMD: 3 Fingerbreadths Neck Extension: fair Teeth: upper dentures Overall Assessment: no airway concerns - ASA ASA Score: 3 - Plan Anesthesia: General Inhalation Gases Regional/Trunk Block: Spinal - Discussion Discussion: Discussed risks/options/alternatives of anesthesia and questions answered. Patient consents. Nursing pain assessment noted. Present for Discussion: family member Attestation Statement: Prior to the delivery of any anesthetic medication, I examined the patient, developed the plan, obtained the patient's consent and discussed the risk and benefits of the procedure with the patient/guardian. - Additional Information Seen by Anesthesia: Yes
--- NOTE | 2017-05-03 09:37 | History & Physical Update ---
- History and Physical Update Date: 05/03/17 Update: I evaluated this patient and found no changes in the history and clinical exam findings. The treatment plan and recommendations are also unchanged from the previous documentation.
[2017-05-03] MEDS ORDERED: VANCOMYCIN 1,000 MG INJECTION ONE (10:01)
[2017-05-03] MEDS: CEFAZOLIN 1 G INJECTION IVP ONE ×2 (10:32→14:13)
[2017-05-03] MEDS ORDERED: MIDAZOLAM 2mg/2ml INJECTION ONE (10:39)
[2017-05-03] MEDS ORDERED: KETAMINE 500 MG/10 ML INJECTION ONE (10:52)
[2017-05-03] MEDS ORDERED: FentaNYL 100 MCG/2 ML INJECTION ONE (10:52)
[2017-05-03] MEDS: TRANEXAMIC ACID 1,000 MG in NS 100 ML IV ONE ×3 (11:00→14:13)
[2017-05-03] MEDS ORDERED: HYDROMORPHONE 2 MG/ML INJECTION IVP PRN (11:31)
[2017-05-03] MEDS ORDERED: SALINE FLUSH 10ml SYRINGE ONE (11:39)
[2017-05-03] MEDS: EPINEPHrine 0.25 MG, BUPIVACAINE 0.25% PF 30 ML, MORPHINE SULFATE 15 MG, KETOROLAC INJ ... OPSITE ONE ×2 (12:16→14:12)
[2017-05-03] MEDS ORDERED: VANCOMYCIN 1,000 MG INJECTION IAR ONE (12:20)
--- NOTE | 2017-05-03 12:34 | Operative Note ---
- Procedure Date of Admission: 05/03/17 Side: left Preoperative Diagnosis: hip pain Postoperative Diagnosis: Same as preoperative diagnosis. Operation: Procedures Replacement of Right Hip Joint with Metal on Polyethylene Synthetic Substitute, Uncemented, Open Approach (11/28/16) Replacement of Right Knee Joint with Synthetic Substitute, Cemented, Open Approach (02/13/17) Operation: total hip arthroplasty Surgeon: Patricia Lewis MD Fund Director: EVELIO Thomas Complications: None. Regional/Trunk Block: Spinal Estimated Blood Loss: See Anesthesia Record. Fluids: Please see Anesthesia Record. Description of Procedure: Mrs. Munguia and her left hip were identified and marked in the preoperative holding area. She was brought back to the operating suite and spinal anesthetic was administered. She was then placed in a lateral decubitus position with her left hip up. The left lower extremity was prepped and draped in my normal sterile fashion. Timeout was performed. The [employer] robotic arm was used to assist with the surgery. A direct superior approach was utilized. An approximately 13 cm incision was made in the skin and dissection carried down to the muscle fascia which was then split in line with skin incision. A checkpoint was placed in the greater trochanter. The short external rotators were identified and tagged and detached. A capsulotomy was performed and the hip dislocated. A femoral neck osteotomy was performed at the pre-templated level measuring down from the femoral head. The head was removed and acetabulum exposed. Labrum was removed. A checkpoint was placed superior to the acetabulum. The acetabulum was then registered with the robot. The robotic arm was then used to ream with a 51 reamer. The robot then was again used to place a 52 Trident cup in 40 of tilt and 25 of anteversion. A liner was then placed. The proximal femur was exposed and prepared with a cookie cutter followed by reaming and broaching to a size 4. We trialed with a 0 head. This measured 7 mm long. After thorough irrigation a final Accolade 2 size 4 stem with 127 neck was placed. Leg length and offset were checked with the robot and were good with a -5 head. A final -5 metal 36 mm head was placed and the hip reduced. Betadine solution was used to irrigate throughout the case. It was followed by normal saline irrigation. Joint cocktail was injected throughout soft tissue. The capsulotomy was repaired with Ethibond. Short external rotators were also repaired with Ethibond. 1 g of vancomycin powder was placed into the wound. The muscle fascia was then repaired with #1 Vicryl. I then left my system to close the subcutaneous tissue with 2-0 Vicryl followed by running 4-0 Monocryl skin followed by Dermabond and a sterile dressing. The patient with any placed back into supine position and taken to recovery room in the care of anesthesia.
[2017-05-03] MEDS ORDERED: PHENYLEPHRINE INJ 10 MG/ML VIAL IV ONE (12:42)
[2017-05-03] MEDS ORDERED: DiphenhydrAMINE 50 MG/ML INJECTION IVP PRN (13:42)
[2017-05-03] MEDS ORDERED: LORazepam 1 MG TABLET PO PRN (13:42)
[2017-05-03] MEDS ORDERED: SALINE FLUSH 10ml SYRINGE IVF PRN (13:42)
[2017-05-03] MEDS ORDERED: ENOXAPARIN 40 MG/0.4 ML INJECTION SQ SCH ×2 (13:42→21:00)
[2017-05-03] MEDS ORDERED: NOZIN NASAL SWAB NAS ONE (13:42)
[2017-05-03] MEDS ORDERED: DiphenhydrAMINE 25 MG CAPSULE PO PRN (13:42)
[2017-05-03] MEDS ORDERED: ALBUTEROL 2.5mg/3ml (0.083%) NEB AEROSOL PRN (13:42)
[2017-05-03] MEDS ORDERED: ONDANSETRON 4 MG/2 ML INJECTION IVP PRN (13:42)
--- NOTE | 2017-05-03 13:51 | Anesthesia Postoperative Note ---
- Date and Time Date: 05/03/17 Time: 13:50 - Status Patient Participated in Evaluation: Patient Participated in Person Vital Signs: Temperature 98.2 F 05/03/17 13:35 Pulse Rate 64 05/03/17 13:35 Respiratory Rate 13 05/03/17 13:35 Blood Pressure 186/79 H 05/03/17 08:33 Pulse Oximetry 94 05/03/17 08:33 Oxygen Delivery Method Room Air Oxygen Flow Rate 2 Respiratory Function: Airway Patent, Regular Respirations Cardiovascular Function: Regular Pulse Mental Status: Alert and Oriented Pain Intensity: 0 Hydration: IV Infusing Complications During Recover: None Apparent Post Anesthesia Care Notes: moves lower extremeties - Follow-Up Instructions Instructions: Per Surgeon
[2017-05-03] MEDS ORDERED: FALL RISK - PHARMACY CONSULT MC PRN (13:55)
[2017-05-03] MEDS ORDERED: WARFARIN 5 MG TABLET PO ONE ×2 (14:10→16:00)
[2017-05-03] MEDS: NS 1,000 ML IV SCH (14:12)
[2017-05-03] MEDS: NOZIN NASAL SWAB NAS SCH ×2 (14:15→22:01)
--- NOTE | 2017-05-03 14:18 | Pharmacy Consult ---
Pharmacy Consult-Warfarin - Laboratory Information COUMADIN CONSULT (Initial): Dx: Left Total Hip Arthroplasty Baseline INR = n/a. 82 yo female admitted for a left total hip arthroplasty. Patient history indicates the patient does not take warfarin on a regular basis. Will give a first dose of Warfarin 5 mg po today. The Pharmacy will continue to monitor and make adjustments accordingly. Thank you for the Warfarin Dosing Protocol, Yared Gamoba, Pharmacist.
[2017-05-03] MEDS: ACETAMINOPHEN 325 MG TABLET PO SCH ×3 (14:20→22:00)
--- NOTE | 2017-05-03 14:23 | XRay Report ---
Indication: postoperative image PROCEDURE: XR pelvis w/ 1 view LT hip: Encounter: Initial Comparison: Pelvis CT dated April 09, 2017 Findings: Postoperative changes of left total hip replacement are seen. There is expected postoperative subcutaneous gas. No evidence of hardware failure or acute fracture. No retained radiopaque surgical instruments or sponges seen. Existing right hip prosthesis appears intact. Degenerative and postoperative changes in the lower lumbar spine. Impression: New left total hip prosthesis without evidence of immediate complication. .
[2017-05-03] MEDS: TRAMADOL 50 MG TABLET PO PRN ×2 (16:12→17:28)
[2017-05-03] MEDS: GABAPENTIN 300 MG CAPSULE PO SCH (16:14)
[2017-05-03] MEDS: CEFAZOLIN 2 G in NS 100 ML IV SCH (18:26)
[2017-05-03] MEDS: DOCUSATE SODIUM 100 MG CAPSULE PO SCH (21:58)
[2017-05-03] MEDS: CALCIUM 500 + VIT D 200 TABLET PO SCH (21:59)
[2017-05-03] MEDS: ASCORBIC ACID 500 MG TABLET PO SCH (22:00)
[2017-05-03] MEDS ORDERED: GABAPENTIN 600 MG TABLET PO SCH (22:00)
[2017-05-03] MEDS ORDERED: SENNOSIDES 8.6 MG TABLET PO SCH (22:00)
[2017-05-03] MEDS ORDERED: SIMVASTATIN 20 MG TABLET PO SCH (22:00)
[2017-05-04] MEDS: CEFAZOLIN 2 G in NS 100 ML IV SCH (03:11)
[2017-05-04] MEDS: NS 1,000 ML IV SCH (03:48)
[2017-05-04] MEDS: TRAMADOL 50 MG TABLET PO PRN ×2 (05:53→11:53)
[2017-05-04] MEDS: NOZIN NASAL SWAB NAS SCH ×2 (05:53→13:35)
[2017-05-04] MEDS ORDERED: LEVOTHYROXINE 100 MCG TABLET PO SCH (06:30)
--- NOTE | 2017-05-04 07:56 | Pharmacy Consult ---
Pharmacy Consult-Warfarin - Laboratory Information 05/04/17 04:38 INR 1.09 COUMADIN CONSULT (Recurring): Today's INR = 1.09. I ordered Warfarin 5mg today. The Pharmacy will continue to monitor & make adjustments accordingly. Thank you, Yared Gamboa, Pharmacist.
[2017-05-04] MEDS: DOCUSATE SODIUM 100 MG CAPSULE PO SCH (08:29)
[2017-05-04] MEDS: ACETAMINOPHEN 325 MG TABLET PO SCH ×2 (08:29→13:35)
[2017-05-04] MEDS: GABAPENTIN 300 MG CAPSULE PO SCH ×2 (08:29→11:54)
[2017-05-04] MEDS: CALCIUM 500 + VIT D 200 TABLET PO SCH (08:29)
[2017-05-04] MEDS: ASCORBIC ACID 500 MG TABLET PO SCH (08:33)
[2017-05-04] MEDS ORDERED: POLYETHYL GLYCOL 3350 17gm PACKET PO SCH (09:00)
[2017-05-04] MEDS ORDERED: LISINOPRIL 10 MG TABLET PO SCH (09:00)
[2017-05-04] MEDS ORDERED: ESTRADIOL 2 MG TABLET PO SCH (09:00)
[2017-05-04] MEDS ORDERED: FUROSEMIDE 40 MG TABLET PO SCH (09:00)
[2017-05-04 11:37] VITALS: BP 150/65; PULSE 70; RESP 18; TEMP 96.1; O2SAT 97
[2017-05-04] MEDS ORDERED: WARFARIN 5 MG TABLET PO SCH (12:00)
[2017-05-04] MEDS ORDERED: SENNOSIDES 8.6 MG TABLET PO PRN (12:43)
--- NOTE | 2017-05-04 14:17 | Orthopedic Progress Note ---
Date: Subjective/Severity of Illness: Sienna is doing great. She is quite sharp. No complaints today. Ready for discharge. No CP, cough or SOA. Orthopedic Objective PO Vital signs: Temperature 96.1 F L 05/04/17 11:37 Pulse Rate 70 05/04/17 11:37 Respiratory Rate 18 05/04/17 11:37 Blood Pressure 150/65 H 05/04/17 11:37 Pulse Oximetry 97 05/04/17 11:37 Oxygen Delivery Method Room Air Oxygen Flow Rate 2 Height and Weight: Height 5 ft 2 in Weight 163 lb 9.328 oz Body Mass Index 28.3 - Constitutional General Appearance: Present: alert, no acute distress - Respiratory Exam Present: non-labored - Extremities Exam Extremities: Present: pulses intact. Absent: calf tenderness - Surgical Site Incision: Mepilex dressing intact, dressing intact, no drainage - Neurological Exam Present: no deficits - Labs Result Diagrams: 05/04/17 04:38 05/04/17 04:38 Abnormal lab results 05/04/17 05/04/17 Range/Units 04:38 04:38 RBC 3.99 L (4.00-5.20) M/MM3 Hgb 11.8 L D (12-16) GM/DL MCHC 30.9 L (31-37) GM/DL Chloride 110 H (98-107) MEQ/L BUN 23.0 H (7-17) MG/DL H & H 05/03/17 05/04/17 Range/Units 08:55 04:38 Hgb 13.6 11.8 L D (12-16) GM/DL Hct 43.1 38.2 D (36-46) % Coagulation 05/04/17 Range/Units 04:38 INR 1.09 (0.99-1.21) Orthopedic Assessment and Plan (1) Primary osteoarthritis of left hip Status: Acute Assessment and Plan: Coumadin protocol for VTE prophylaxis. Home on 2.5mg daily and check INR 2x/wk. Lovenox until INR > 1.5-2.0 PT/OT services to improve independent function. Discharge Planning per Case Management. Hospital Course Summary Disclaimer: The visit summary below is not to be considered part of the above Progress Note.
--- NOTE | 2017-05-04 14:22 | Discharge Summary ---
Orthopedic Discharge Info Date of admission: 05/03/17 08:15 Primary care physician: David Giles MD Attending Physician: Charli Lewis MD Consults: 05/03/17 07:57 Consult to Anesthesiology [CONS] Routine Consulting Provider: EVELIO Aaron Reason For Exam: Preoperative Assessment 05/03/17 13:42 Case Management Consult [CONS] Routine Reason For Exam: Discharge Planning DME-Walker [CONS] Routine Height: 5 ft 2 in Weight: 154 lb 12.232 oz Comment: change dressing in 2 weeks Pharmacy Consult [CONS] Routine Pharmacy Consult: Coumadin/Warfarin Total Joint Outpatient Therapy [CONS] Routine Comment: change dressing in 2 weeks - Discharge Diagnosis (1) Primary osteoarthritis of left hip Status: Acute - Procedures Procedures: Procedures Replacement of Right Hip Joint with Metal on Polyethylene Synthetic Substitute, Uncemented, Open Approach (11/28/16) Replacement of Right Knee Joint with Synthetic Substitute, Cemented, Open Approach (02/13/17) Robotic arm assisted Lt MICHAELLE Dr Lewis 05/03/17. - Laboratory Result Diagrams: 05/04/17 04:38 05/04/17 04:38 Laboratory: Abnormal lab results 05/04/17 05/04/17 Range/Units 04:38 04:38 RBC 3.99 L (4.00-5.20) M/MM3 Hgb 11.8 L D (12-16) GM/DL MCHC 30.9 L (31-37) GM/DL Chloride 110 H (98-107) MEQ/L BUN 23.0 H (7-17) MG/DL H & H 05/03/17 05/04/17 Range/Units 08:55 04:38 Hgb 13.6 11.8 L D (12-16) GM/DL Hct 43.1 38.2 D (36-46) % Coagulation 05/04/17 Range/Units 04:38 INR 1.09 (0.99-1.21) Orthopedic Discharge HPI - HPI Comments This patient was admitted for elective surgical tx of end stage degenerative joint disease that failed to respond to conservative treatment. Further details of this is found in the admission H&P. Orthopedic Hospital Course Hospital course: 05/04/17 14:19 After appropriate preoperative clearance and signing of operative consent, the patient was given IV antibiotics, according to orthopedic protocol. The patient was taken to the operating room and underwent elective robotic arm assisted Lt total hip arthroplasty. Following surgery, antibiotics were discontinued less than 24 hours according to joint protocol. Lovenox / Coumadin protocol was initiated and SCDs added for DVT prevention She will get INRs checked 2x / week. The dressing was clean, dry, and intact. Pain control was obtained via multimodal approach. Bowel motivation addressed with scheduled and PRN medications. Early mobilization was initiated through PT services. Discharge arrangements made by a collaborative effort between the patient and Case Management. Follow-up is scheduled in 2-3 weeks. Discharge instructions given by orthopedic providers and nursing staff at discharge. Discharge condition was good. Ongoing care required?: No Discharge Plan - Med Rec/Dispo Referrals/Follow Up: Charli Lewis MD [Physician] - 05/28/17 1:00 pm Dennisuvrafaela Instructions: [facility] [place] General Instructions, [facility] [place] Postop Instructions Additional Instructions: MANAGER RESOURCE LOVENOX MEDICATION AT [facility]. YOU WILL NEED TO HAVE THE MEDICATION AVAILABLE WHEN HOME HEALTH VISITS ON SUNDAY SO THEY CAN GIVE YOU THE INJECTION. THE MEDICATION WILL COST $57.22. [facility] WILL BEGIN VISITING YOU ON SUNDAY, MAY 05. THEY WILL DO THERAPY, LOVENOX INJECTIONS AND LAB. Prescriptions: New Acetaminophen [Tylenol] 650 mg PO QID tablet Enoxaparin Sodium [Lovenox] 40 mg SQ 2100 5 Days Milk of Magnesia [Mom] 30 ml PO DAILY udc Tramadol [Ultram] 50 - 100 mg PO Q6H PRN #50 tablet PRN Reason: Pain PEG 3350 17gm PACKET [Miralax] 17 gm PO DAILY packet Continue Gabapentin 300 mg PO TID #0 Gabapentin 600 mg PO HS #0 tab Albuterol Sulfate [Proair Hfa] 2 puff INH Q4H PRN #0 inhaler PRN Reason: SHORTNESS OF AIR/WHEEZING Multivitamin [Multi-Day Vitamins] 1 tab PO DAILY #0 tab Flaxseed Oil 1 cap PO DAILY #0 Estradiol [Estrace] 1 tab PO DAILY Furosemide [Lasix] 40 mg PO DAILY Simvastatin 20 mg PO HS #0 Fluticasone/Salmeterol 100/50 [Advair Diskus] 1 puff IH BID #0 Lisinopril 10 mg PO DAILY #0 tab Ascorbic Acid [Vitamin C] 500 mg PO BID #0 tab Levothyroxine Tab [Synthroid] 100 mcg PO ACB Calcium Carbonate/Vitamin D3 [Calcium 500-Vit D3 200 Tablet] 1 each PO BID - Disposition 01 Discharged Home, Self-Care
[2017-05-05] MEDS ORDERED: BISACODYL 10 MG SUPPOSITORY RECTALLY SCH (20:00)
== END 2017-05-04 14:48 | disposition home health service (06) | DRG 470 ==
LOC: SRG 08:15
PROVIDERS: ADMIT Orthopaedic Surgery; ATTEND Orthopaedic Surgery